=== PATIENT | male | born 1930 ===

== ENCOUNTER 2016-09-17 12:50 | Emergency (ER) | payer OTHER, MEDICARE ==
[~2016-09-17] VITALS: Ht 170.2 cm; Wt 65.8 kg
[~2016-09-17 12:50] MED LIST: CARDIZEM CD120 M2 PO; CARDIZEM CD180 M1 PO; CARDIZEM30 M1 PO; CLARITIN10 MG PO; COUMADIN 2.5 M2.5 MG PO; COZAAR 50MG TAB50 MG PO; CRESTOR 10MG10 MG PO; DILTIAZEM HCL30 M1 PO; DONEPEZIL HCL10 M1 PO; FERROUS SULFAT324 M1 PO; LEVOTHYROXINE0.1 M1 PO; METOPROLOL TART25 M1 PO; METOPROLOL TART50 M1 PO; MIRALAX119 GM PO; NEXIUM 40MG40 MG PO; NORVASC 5MG TAB5 MG PO; TAMSULOSIN HCL0.4 M1 PO; TRIAMCINOLONE AC
[2016-09-17 13:47] LABS: ABSOLUTE BASOPHIL COUNT 0 /CUMM (0.0-0.2); ABSOLUTE EOSINOPHIL COUNT 0.2 /CUMM (0.0-0.7); ABSOLUTE GRANULOCYTE CT 6.3 /CUMM (1.4-6.5); ABSOLUTE LYMPH COUNT 0.9 /CUMM (1.2-3.4); ABSOLUTE MONOCYTE COUNT 0.9 /CUMM (0.10-0.60); BASOPHIL % 0.4 % (0.0-2.0); EOSINOPHIL % 2.9 % (0-5); HEMATOCRIT 37.2 % (42-52); MEAN CORPUSCULAR HGB 30.9 PG (27.0-31.0); MEAN CORPUSCULAR HGB CONC 33.3 G/DL (33.0-37.0); MEAN CORPUSCULAR VOLUME 92.8 FL (80.0-94.0); MEAN PLATELET VOLUME 7.8 FL (7.4-10.4); PLATELET COUNT 198 /CUMM (130-400); RBC DISTRIBUTION WIDTH 14.6 % (11.5-14.5); RED BLOOD CELL CT 4.01 /CUMM (4.70-6.10); WHITE BLOOD CELL COUNT 8.5 /CUMM (4.8-10.8)
[2016-09-17 13:55] LABS: PT 19.2 SEC (9.4-12.5); PTT 36 SEC (25-37)
--- NOTE | 2016-09-17 14:16 | ED MVC/FALL/TRAUMA COMPLAINT ---
See Addendum History of Present Illness General Chief Complaint: Fall Stated Complaint: FALL RIGHT ARM PAIN Source: patient Exam Limitations: no limitations Allergies Coded Allergies: atorvastatin (UNKNOWN 03/08/16) cephalexin (RASH 03/08/16) ramipril (RASH 03/08/16) Reconcile Medications Diltiazem HCl (Cardizem) 30 MG TABLET 1 TAB PO Q8 HEART Donepezil HCl 10 MG TABLET 1 TAB PO DAILY MEMORY (Reported) Esomeprazole (Nexium) 40 MG CAPSULE.DR 1 CAP PO DAILY GI (Reported) Ferrous Sulfate 324 MG (65 MG IRON) TABLET.DR 1 TAB PO DAILY SUPPLEMENT ( Reported) Levothyroxine Sodium 0.1 MG TAB 1 TAB PO DAILY THYROID (Reported) Loratadine (Claritin) 10 MG TAB 1 TAB PO DAILY ALLERGIES/RESPIRATORY ( Reported) Metoprolol Tartrate 25 MG TABLET 3 TAB PO BID Rapid heart rate Polyethylene Glycol 3350 (Miralax) 119 GM POWDER 17 GM PO DAILY PRN CONSTIPATION Rosuvastatin Calcium (Crestor) 10 MG TABLET 1 TAB PO DAILY CHOLESTEROL ( Reported) Tamsulosin HCl 0.4 MG CAP.ER.24H 1 CAP PO DAILY BPH (Reported) Warfarin Sodium (Coumadin) 2.5 MG TABLET 1 TAB PO DAILY BLOOD THINNER ( Reported) Triage Note: C/O PAIN IN R UPPER ARM, S/P FALL. WAS GETTING WEIGHED BY HOME HEALTH AIDE. FELL BACKWARDS AGAINST A WALL. UNSURE OF SXS PRIOR. Triage Nurses Notes Reviewed? yes Onset: Abrupt Duration: constant Timing: single episode today Severity: mild Severity Numbers: 1 Injuries/Fall Location: upper extremity HPI: Patient is an 86-year-old male with a past medical history of Alzheimer's, COPD, atrial for ablation currently on warfarin who presents emergency room with a mechanical fall 7 hours prior to arrival he was in his normal state of health in which a home health aid had been attempting to weigh the patient on a scale which patient then stepped off the scale miss stepped and subsequently fell to the right side of his body and which he braced his fall in which she subsequently struck the RIGHT upper arm to corner of piece of furniture resulting in skin trauma. Patient with assistance was able to get up on his own accord and patient denies any preceding episode of lightheaded sensation dizziness denies any head strike denies any neck pain back pain abdominal pain lower extremity pain. Patient has been able to ambulate without any pain. Patient usually ambulate with a cane and/or walker. Tetanus is is up-to-date Due to the skin tear bleeding did occur which this was controlled prior to arrival in which the health aide did dress the wound (KEM BARKER) Vital Signs & Intake/Output Vital Signs & Intake/Output Vital Signs Date Time Temp Pulse Resp B/P Pulse O2 O2 Flow FiO2 Ox Delivery Rate 09/17 1552 97.9 89 20 139/80 99 Room Air 09/17 1319 97.1 68 18 128/73 93 Room Air Past History Travel History Traveled to [facility] past 21 day No Medical History Any Pertinent Medical History? 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 No (KEM BARKER) Review of Systems Review of Systems Constitutional: Reports: no symptoms. Eyes: Reports: no symptoms. Ears, Nose, Throat, Mouth: Reports: no symptoms. Respiratory: Reports: no symptoms. Cardiovascular: Reports: no symptoms. Gastrointestinal/Abdominal: Reports: no symptoms. Genitourinary: Reports: no symptoms. Musculoskeletal: Reports: see HPI. Skin: Reports: see HPI. Neurological/Psychological: Reports: see HPI. All Other Systems: Reviewed and Negative (KEM BARKER) Physical Exam Physical Exam General Appearance: well developed/nourished, no apparent distress, alert Comments: Well-developed well-nourished person in no acute distress HEENT: Normal EENT exam, extraocular motion intact, no nystagmus. Pupils equally round and reactive to light and accommodation. Nose is atraumatic. External auditory canal and Tympanic membranes clear. Pharynx normal. No swelling or edema. Neck: Supple, no lymphadenopathy, normal range of motion without pain or tenderness No central spinous tenderness Back: Nontender, no CVA tenderness. Full range of motion No central spinous tenderness Cardiovascular: Regular rate and rhythms no murmurs rubs or gallops, normal JVP Respiratory: Chest nontender. No respiratory distress.breath sounds clear to auscultation bilaterally Abdomen: Soft, nontender nondistended, no appreciable organomegaly. Normal bowel sounds. No ascites Extremity: No edema, no calf tenderness to palpation, normal and equal pulses. Bilateral upper extremity and lower extremity myotomes dermatomes DTRs intact 5 out of 5 resisted range of motion noted in all extremities Neuro: Alert oriented x3, motor sensory normal, cranial nerves II through XII grossly intact. Skin: No appreciable rash on exposed skin, skin is warm and dry. Psych: Mood and affect is normal, memory and judgment is normal. Diagram Body: 1) 3 skin V-SHAPED FLAP tears noted of superficial depth no active bleeding Approximately 2 cm x 2 cm each skin tear Core Measures ACS in differential dx? No Severe Sepsis Present: No Septic Shock Present: No (CORNELIO HO,KEM) Progress Differential Diagnosis: aoritic dissection, abd injury, C/T/L spine injury, ext injury, ICH, pelvis injury, pnemothorax, spinal cord injury (KEM BARKER) Plan of Care: Orders Procedure Date/time Status TROPONIN LEVEL 09/17 1325 Complete PARTIAL THROMBOPLASTIN TIME 09/17 1325 Complete PROTHROMBIN TIME 09/17 1325 Complete CBC WITHOUT DIFFERENTIAL 09/17 1325 Complete BASIC METABOLIC PANEL 09/17 1325 Complete EKG 09/17 1324 Active Laboratory Tests 09/17/16 1336: Anion Gap 10, Estimated GFR 52 L, BUN/Creatinine Ratio 17.7, Glucose 81, Calcium 9.0, Troponin I < 0.01, PT 19.2 H, INR 1.84 H, APTT 36, CBC w Diff NO MAN DIFF REQ, RBC 4.01 L, MCV 92.8, MCH 30.9, RDW 14.6 H, MPV 7.8, Gran % 75.0 , Lymphocytes % 11.1 L, Monocytes % 10.6 H, Eosinophils % 2.9, Basophils % 0.4 , Absolute Granulocytes 6.3, Absolute Lymphocytes 0.9 L, Absolute Monocytes 0.9 H, Absolute Eosinophils 0.2, Absolute Basophils 0, PUBS MCHC 33.3 Patient has unremarkable blood work patient has stable and known atrial fibrillation noted on EKG. Patient has normal steady gait. The wound sites were irrigated extensively with peroxide and water. Tetanus is up-to-date. No concerns of neurovascular compromise or tendon compromise. The skin tears were repaired and margins were repaired with benzoin and Steri- Strips. Margins were revised patient tolerated well Telfa pad and Kerlix were then applied. I discussed disposition plan with patient and family members who agree upon discharge patient looks well there is no concerns of head strike central spinous pain fracture Patient has no symptoms. Discussed and instructed patient on wound care Discussed patient with Dr. Lo who agrees with disposition and plan (KEM BARKER) Departure Departure Disposition: HOME OR SELF CARE Condition: Stable Clinical Impression Primary Impression: Skin tear of right upper arm without complication Secondary Impressions: Fall Referrals: SAMANTHA ANDRE,TERI Woodruff (PCP/Family) Additional Instructions: As discussed please change the bandages provided to YOU IN the emergency room once a day. If you note signs of infection redness, pain, swelling, discharge to the wound site return to the emergency room immediately. The Steri-Strips that have been applied TO YOU in the emergency room will follow-up in approximateLY 4 days. Keep the wound UNBANDAGED after 4 days. Follow-up with your primary care doctor on Wednesday. Departure Forms: Customer Survey General Discharge Information (KEM BARKER) PA/RV PARTS AND SERVICE DIRECTOR Co-Sign Statement Statement: ED Attending supervision documentation- [X] I saw and evaluated the patient. I have also reviewed all the pertinent lab results and diagnostic results. I agree with the findings and the plan of care as documented in the PA's/RV PARTS AND SERVICE DIRECTOR's documentation. [] I have reviewed the ED Record and agree with the PA's/RV PARTS AND SERVICE DIRECTOR's documentation. [] Additions or exceptions (if any) to the PAs/RV PARTS AND SERVICE DIRECTOR's note and plan are summarized below: [] (DEVYN ANDRE,ZOYA Ann) ED Attending Observation Initial Observation Note: I have seen and personally examined PAGE GARRIDO on 09/17/16 at 1648. I agree with the current emergency department documentation. The disposition (admission or discharge) is uncertain at this time, he needs a period of observation for the following reason(s): The ED Nurse caring for this patient has been personally informed as to what the patient is being observed for. (KEM BARKER)
[2016-09-17 15:52] VITALS: BP 139/80
== END 2016-09-17 16:07 ==
LOC: ERH 12:50
PROVIDERS: Emergency Medicine
DX: S41.111A Laceration without foreign body of right upper arm, initial encounter (principal); I48.91 Unspecified atrial fibrillation; Z79.01 Long term (current) use of anticoagulants; W18.09XA Striking against other object with subsequent fall, initial encounter
CPT/HCPCS: 93005; 93010

== ENCOUNTER 2016-10-16 08:56 | Inpatient (IN) | payer OTHER, MEDICARE ==
[~2016-10-16] VITALS: Ht 170.2 cm; Wt 65.8 kg
--- NOTE | 2016-10-16 09:03 | NUR ---
86 YO MALE BIBA FROM HOME. PTS AIDE FOUND PT ON THE FLOOR THIS AM. PER AIDE, PT WAS C/O L SIDED HIP PAIN. PT DENIES PAIN TO AREA AT THIS TIME, ABLE TO MOVE BOTH LEGS WITHOUT DIFFICULTIES OR PAIN. PT STATES "IM JUST ALL BRUISED UP" PT HX OF DEMENTIA. ALERT AND ORIENTED AT THIS TIME.
--- NOTE | 2016-10-16 09:06 | NUR ---
PTS R EYE NOTED TO BE RED AROUND LID, PER AIDE THAT IS NORMAL FOR THE PT. PT DENIES PAIN TO THE EYE
--- NOTE | 2016-10-16 09:10 | NUR ---
PA STUDENT AT BEDSIDE FOR EVAL
--- NOTE | 2016-10-16 09:29 | ED MVC/FALL/TRAUMA COMPLAINT ---
History of Present Illness General Chief Complaint: Fall Stated Complaint: FALL Source: patient, family Exam Limitations: dementia Vital Signs & Intake/Output Vital Signs & Intake/Output Vital Signs Date Time Temp Pulse Resp B/P Pulse O2 O2 Flow FiO2 Ox Delivery Rate 10/16 1229 97.3 86 18 147/70 96 Room Air 10/16 1031 97.1 81 18 151/76 98 Room Air 10/16 0903 97 Room Air 10/16 0900 98.6 96 18 147/87 97 Room Air Allergies Coded Allergies: atorvastatin (UNKNOWN 03/08/16) cephalexin (RASH 03/08/16) ramipril (RASH 03/08/16) Triage Note: 86 YO MALE BIBA FROM HOME. PTS AIDE FOUND PT ON THE FLOOR THIS AM. PER AIDE, PT WAS C/O L SIDED HIP PAIN. PT DENIES PAIN TO AREA AT THIS TIME, ABLE TO MOVE BOTH LEGS WITHOUT DIFFICULTIES OR PAIN. PT STATES "IM JUST ALL BRUISED UP" PT HX OF DEMENTIA. ALERT AND ORIENTED AT THIS TIME. Triage Nurses Notes Reviewed? yes Onset: Abrupt Timing: recent history Severity: moderate, severe Injuries/Fall Location: head, pelvis Method of Injury: fall Loss of Consciousness: unsure No Modifying Factors: none HPI: 86-year-old male with a history of dementia was found on the floor by the nurses a. Patient fell. Patient cannot recall how he fell. Patient cannot recall if he had preceding symptoms. Patient admits to some left hip pain. Family reports patient has been falling repeatedly at home and is not safe at home. No complaints of fever chills vomiting or chest pain. (ANGELICA HO,LOTUS) Reconcile Medications Diltiazem HCl (Diltiazem 24HR ER) 120 MG CAP.ER.24H 1 CAP PO DAILY AFIB ( Reported) Diltiazem HCl (Cardizem) 30 MG TABLET 1 TAB PO Q8 HEART Donepezil HCl 10 MG TABLET 1 TAB PO DAILY MEMORY (Reported) Esomeprazole (Nexium) 40 MG CAPSULE.DR 1 CAP PO DAILY GI (Reported) Ferrous Sulfate 324 MG (65 MG IRON) TABLET.DR 1 TAB PO DAILY SUPPLEMENT ( Reported) Levothyroxine Sodium 0.1 MG TAB 1 TAB PO DAILY THYROID (Reported) Levothyroxine Sodium 150 MCG TABLET 1 TAB PO DAILY HYPOTHYROID (Reported) Loratadine (Claritin) 10 MG TAB 1 TAB PO DAILY ALLERGIES/RESPIRATORY ( Reported) Metoprolol Tartrate 25 MG TABLET 3 TAB PO BID Rapid heart rate Polyethylene Glycol 3350 (Miralax) 119 GM POWDER 17 GM PO DAILY PRN CONSTIPATION Rosuvastatin Calcium (Crestor) 10 MG TABLET 1 TAB PO DAILY CHOLESTEROL ( Reported) Tamsulosin HCl 0.4 MG CAP.ER.24H 1 CAP PO DAILY BPH (Reported) Trazodone HCl 50 MG TABLET 1 TAB PO QPM INSOMNIA (Reported) Warfarin Sodium (Coumadin) 2.5 MG TABLET 1 TAB PO DAILY BLOOD THINNER ( Reported) (ZOYA KOTHARI DO) Past History Travel History Traveled to [place] past 21 day No Medical History Any Pertinent Medical History? 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 No (LOTUS OCONNOR) Review of Systems Review of Systems Constitutional: Reports: see HPI. Eyes: Reports: no symptoms. Ears, Nose, Throat, Mouth: Reports: no symptoms. Respiratory: Reports: no symptoms. Cardiovascular: Reports: no symptoms. Gastrointestinal/Abdominal: Reports: no symptoms. Genitourinary: Reports: no symptoms. Musculoskeletal: Reports: no symptoms. Skin: Reports: no symptoms. Neurological/Psychological: Reports: see HPI. All Other Systems: Reviewed and Negative (LOTUS OCONNOR) Physical Exam Physical Exam General Appearance: well developed/nourished, no apparent distress, alert Head: atraumatic Eyes: Bilateral: normal appearance, EOMI. Ears, Nose, Throat, Mouth: hearing grossly normal, moist mucous membrane Neck: normal inspection Respiratory: normal breath sounds, no respiratory distress Cardiovascular: irregularly irregular Gastrointestinal: soft Back: normal inspection Extremities: normal range of motion Neurologic/Psych: awake, alert Skin: intact, normal color Core Measures ACS in differential dx? No Severe Sepsis Present: No Septic Shock Present: No (ANGELICA HO,LOTUS) Progress Differential Diagnosis: abd injury, C/T/L spine injury, ext injury, ICH, pelvis injury, pnemothorax, spinal cord injury, UTI, syncope, cardiac arrhythmia Plan of Care: Orders Procedure Date/time Status Regular Diet 10/16 D Active PT Evaluate & Treat 10/16 1401 Active Pathway - chart 10/16 1401 Active House Staff 10/16 1401 Active Patient Data 10/16 1401 Active Code Status 10/16 1401 Active Intake & Output 10/16 1354 Active Admit to inpatient 10/16 1224 Active Vital Signs 10/16 1224 Active Code Status 10/16 1224 Complete Patient Data 10/16 1203 Active Telemetry/Oral Pathologist 10/16 0928 Active URINALYSIS 10/16 09 Complete TROPONIN LEVEL 10/16 927 Complete PROTHROMBIN TIME 10/16 927 Complete COMPREHENSIVE METABOLIC PANEL 10/16 927 Complete CREATINE PHOSPHOKINASE 10/16 927 Complete CBC WITHOUT DIFFERENTIAL 10/16 927 Complete EKG 10/16 927 Active VTE Mechanical Prophylaxis 10/16 UNK Active Laboratory Tests 10/16/16 1104: Urine Color YEL, Urine Clarity HAZY H, Urine pH 6.0, Ur Specific Purchase 1.025, Urine Protein TRACE H, Urine Ketones NEG, Urine Nitrite POS H, Urine Bilirubin NEG, Urine Urobilinogen 1.0, Ur Leukocyte Esterase MOD H, Ur Microscopic SEDIMENT EXAMINED, Urine RBC RARE, Urine WBC 50-75 H, Urine Mucus RARE, Urine Hemoglobin NEG, Urine Glucose NEG 10/16/16 0939: Anion Gap 8, Estimated GFR 44 L, BUN/Creatinine Ratio 20.0, Glucose 90, Calcium 9.1, Total Bilirubin 0.8, AST 19, ALT 23, Alkaline Phosphatase 123, Creatine Kinase 70, Troponin I < 0.01, Total Protein 7.0, Albumin 3.6, Globulin 3.4, Albumin/Globulin Ratio 1.1, PT 34.8 H, INR 3.35 H, CBC w Diff NO MAN DIFF REQ, RBC 3.99 L, MCV 92.3, MCH 30.7, RDW 14.1, MPV 8.2, Gran % 80.2 H, Lymphocytes % 8.2 L, Monocytes % 9.4 H, Eosinophils % 1.9, Basophils % 0.3, Absolute Granulocytes 5.1, Absolute Lymphocytes 0.5 L, Absolute Monocytes 0.6, Absolute Eosinophils 0.1, Absolute Basophils 0, PUBS MCHC 33.3 Diagnostic Imaging: Viewed by Me: Radiology Read, CT Scan. Discussed w/RAD: Radiology Read, CT Scan. Radiology Impression: EXAM TYPE: CAT - CT CERV SPINE WO IV CONTRAST; CT HEAD WO IV CONTRAST EXAMINATION: CT HEAD AND CERVICAL SPINE. CLINICAL INFORMATION: Fall. Dementia. Pain. COMPARISON: CT head 05/11/2016. TECHNIQUE: Blood Collector images were obtained. A CT acquisition of the head and cervical spine was performed without intravenous administration of contrast. Data was reformatted into multiplanar images at the acquisition workstation. DLP: 972.40 mGy-cm. FINDINGS: Head: There is no acute intracranial hemorrhage or abnormal extra-axial collection. No intracranial mass effect or midline shift. Lateral and third ventricles are normal. There is no hydrocephalus. There are a few scattered foci of nonspecific hypoattenuation within the periventricular white matter and basal ganglia that are most consistent with a chronic manifestation of small vessel ischemia. Long- white matter differentiation is grossly preserved and there is no evidence of acute territorial infarct. The calvarium and skull base are intact. Mastoid air cells and middle ear cavities are well aerated. Visualized paranasal sinuses are well aerated. Globes and orbits are symmetric. Cervical spine: There is 3 mm anterolisthesis of C7 on T1 related to advanced facet degenerative changes at this level. Slight anterolisthesis of C2 on C3. Vertebral alignment is otherwise maintained in the sagittal dimension. There is no evidence of acute fracture. No abnormal prevertebral soft tissue swelling. There is a prominent bridging disc osteophyte complex that fuses the C5 and C6 vertebral segments. There is loss of intervertebral disc height with associated sclerotic degenerative endplate changes at multiple levels within the cervical spine related to degenerative spondylosis. There appears be mild canal stenosis at the levels of C3-C4, C4-C5, and C6-C7. Otherwise there is grossly no evidence of canal compromise. There are varying degrees of neuroforaminal encroachment related to uncovertebral joint hypertrophy and facet osteophyte spurring. Soft tissues of the neck are grossly unremarkable. Specifically there is no worrisome mass. Calcified atheromatous plaque involves both carotid bifurcations. Lung apices are clear. IMPRESSION: Head: There is no evidence of acute territorial infarct or hemorrhage. Numerous chronic small vessel ischemic changes are visualized within the periventricular white matter and basal ganglia. Cervical spine: There is multilevel degenerative spondylosis of the cervical spine. No evidence of acute fracture. There is 3 mm anterolisthesis of C7 on T1 related to advanced facet degenerative changes at this level. There is at least mild canal stenosis at multiple levels and varying degrees of neuroforaminal encroachment related to multifactorial degenerative changes. DICTATED BY: JOCY NORIEGA MD DATE/TIME DICTATED:10/16/161019 BRANNER MACHINE TENDER:FRANCINE DATE/TIME TRANSCRIBED:10/16/161019, SERVICE DATE : 10/16/16 EXAM TYPE: RAD - XRY-HIP 2-3 VIEWS, RIGHT EXAMINATION: XR HIP, RIGHT CLINICAL INFORMATION: Fall. Pain. COMPARISON: No relevant prior imaging is available. TECHNIQUE: An AP view of the pelvis was obtained and 2 additional projections of the right hip were obtained. FINDINGS: There is mild degenerative arthrosis of the right hip with a small osteophyte collar surrounding the femoral head. There is no acute fracture. The joint space is maintained. Soft tissues are unremarkable. Grossly there is no large joint effusion. The AP view of the pelvis reveals no abnormal finding. The pelvic ring is intact. Scattered atheromatous calcifications are visualized within both iliac and femoral vessels. Visualized bowel gas pattern is unremarkable. Degenerative spondylosis of the lumbar lower spine is noted with narrowing of the intervertebral disc space and sclerotic degenerative endplate changes at L4-L5. IMPRESSION: No acute fracture. Mild degenerative changes of the right hip. DICTATED BY: JOCY NORIEGA MD DATE/TIME DICTATED:10/16/161002 BRANNER MACHINE TENDER:FRANCINE DATE/ TIME TRANSCRIBED:10/16/161002 CONFIDENTIAL, DO NOT COPY WITHOUT APPROPRIATE AUTHORIZATION. Initial ED EKG: rate (82), AFIB, venticular trigeminy (LOTUS OCONNOR) Departure Departure Disposition: STILL A PATIENT Condition: Stable Clinical Impression Primary Impression: Gait instability Secondary Impressions: UTI (urinary tract infection) Referrals: SAMANTHA ANDRE,TERI Woodruff (PCP/Family) Departure Forms: Customer Survey General Discharge Information Admission Note Spoke With: SAL OJEDA MD Documentation of Exam: Documentation of any treatments & extenuating circumstances including Concerns Regarding Discharge (functional status, medication knowledge or non-compliance, living conditions, etc.) that warrant an admission rather than observation: Patient will require IV antibiotics. Physical therapy consultation. Patient is unable to ambulate here in the emergency room. Fall risk at home. Patient would do poorly as an outpatient. (LOTUS OCONNOR) PA/REMELT FURNACE EXPEDITER Co-Sign Statement Statement: ED Attending supervision documentation- [X] I saw and evaluated the patient. I have also reviewed all the pertinent lab results and diagnostic results. I agree with the findings and the plan of care as documented in the PA's/REMELT FURNACE EXPEDITER's documentation. [] I have reviewed the ED Record and agree with the PA's/REMELT FURNACE EXPEDITER's documentation. [] Additions or exceptions (if any) to the PAs/REMELT FURNACE EXPEDITER's note and plan are summarized below: [] (ZOYA KOTHARI DO
--- NOTE | 2016-10-16 09:39 | NUR ---
EKG COMPLETE AND SHOWN TO DR KOTHARI
--- NOTE | 2016-10-16 09:42 | NUR ---
BLOOD DRAWN AND SENT TO LAB. LAV,BLUE,SST,PINK, URBAN
--- NOTE | 2016-10-16 09:46 | NUR ---
PT TO CT SCAN VIA STRETCHER AT THIS TIME
[2016-10-16 09:48] LABS: ABSOLUTE BASOPHIL COUNT 0 /CUMM (0.0-0.2); ABSOLUTE EOSINOPHIL COUNT 0.1 /CUMM (0.0-0.7); ABSOLUTE GRANULOCYTE CT 5.1 /CUMM (1.4-6.5); ABSOLUTE LYMPH COUNT 0.5 /CUMM (1.2-3.4); ABSOLUTE MONOCYTE COUNT 0.6 /CUMM (0.10-0.60); BASOPHIL % 0.3 % (0.0-2.0); EOSINOPHIL % 1.9 % (0-5); GRANULOCYTE % 80.2 % (42.2-75.2); HEMATOCRIT 36.8 % (42-52); MEAN CORPUSCULAR HGB 30.7 PG (27.0-31.0); MEAN CORPUSCULAR HGB CONC 33.3 G/DL (33.0-37.0); MEAN CORPUSCULAR VOLUME 92.3 FL (80.0-94.0); MEAN PLATELET VOLUME 8.2 FL (7.4-10.4); PLATELET COUNT 184 /CUMM (130-400); RBC DISTRIBUTION WIDTH 14.1 % (11.5-14.5); RED BLOOD CELL CT 3.99 /CUMM (4.70-6.10); WHITE BLOOD CELL COUNT 6.4 /CUMM (4.8-10.8)
[2016-10-16 10:05] LABS: PT 34.8 SEC (9.4-12.5)
--- NOTE | 2016-10-16 10:10 | RADIOLOGY REPORT ---
EXAMINATION: XR HIP, RIGHT CLINICAL INFORMATION: Fall. Pain. COMPARISON: No relevant prior imaging is available. TECHNIQUE: An AP view of the pelvis was obtained and 2 additional projections of the right hip were obtained. FINDINGS: There is mild degenerative arthrosis of the right hip with a small osteophyte collar surrounding the femoral head. There is no acute fracture. The joint space is maintained. Soft tissues are unremarkable. Grossly there is no large joint effusion. The AP view of the pelvis reveals no abnormal finding. The pelvic ring is intact. Scattered atheromatous calcifications are visualized within both iliac and femoral vessels. Visualized bowel gas pattern is unremarkable. Degenerative spondylosis of the lumbar lower spine is noted with narrowing of the intervertebral disc space and sclerotic degenerative endplate changes at L4-L5. IMPRESSION: No acute fracture. Mild degenerative changes of the right hip.
--- NOTE | 2016-10-16 10:33 | CT SCAN REPORT ---
EXAMINATION: CT HEAD AND CERVICAL SPINE. CLINICAL INFORMATION: Fall. Dementia. Pain. COMPARISON: CT head 05/11/2016. TECHNIQUE: Pharmacy Retail Support Specialist images were obtained. A CT acquisition of the head and cervical spine was performed without intravenous administration of contrast. Data was reformatted into multiplanar images at the acquisition workstation. DLP: 972.40 mGy-cm. FINDINGS: Head: There is no acute intracranial hemorrhage or abnormal extra-axial collection. No intracranial mass effect or midline shift. Lateral and third ventricles are normal. There is no hydrocephalus. There are a few scattered foci of nonspecific hypoattenuation within the periventricular white matter and basal ganglia that are most consistent with a chronic manifestation of small vessel ischemia. Long-white matter differentiation is grossly preserved and there is no evidence of acute territorial infarct. The calvarium and skull base are intact. Mastoid air cells and middle ear cavities are well aerated. Visualized paranasal sinuses are well aerated. Globes and orbits are symmetric. Cervical spine: There is 3 mm anterolisthesis of C7 on T1 related to advanced facet degenerative changes at this level. Slight anterolisthesis of C2 on C3. Vertebral alignment is otherwise maintained in the sagittal dimension. There is no evidence of acute fracture. No abnormal prevertebral soft tissue swelling. There is a prominent bridging disc osteophyte complex that fuses the C5 and C6 vertebral segments. There is loss of intervertebral disc height with associated sclerotic degenerative endplate changes at multiple levels within the cervical spine related to degenerative spondylosis. There appears be mild canal stenosis at the levels of C3-C4, C4-C5, and C6-C7. Otherwise there is grossly no evidence of canal compromise. There are varying degrees of neuroforaminal encroachment related to uncovertebral joint hypertrophy and facet osteophyte spurring. Soft tissues of the neck are grossly unremarkable. Specifically there is no worrisome mass. Calcified atheromatous plaque involves both carotid bifurcations. Lung apices are clear. IMPRESSION: Head: There is no evidence of acute territorial infarct or hemorrhage. Numerous chronic small vessel ischemic changes are visualized within the periventricular white matter and basal ganglia. Cervical spine: There is multilevel degenerative spondylosis of the cervical spine. No evidence of acute fracture. There is 3 mm anterolisthesis of C7 on T1 related to advanced facet degenerative changes at this level. There is at least mild canal stenosis at multiple levels and varying degrees of neuroforaminal encroachment related to multifactorial degenerative changes.
--- NOTE | 2016-10-16 10:40 | NUR ---
PT REPOSOTIONED FOR COMFORT AT THIS TIME. PT AWARE OF NEED FOR URINE SAMPLE AND WILL LET ME KNOW WHEN HE HAS TO GO
--- NOTE | 2016-10-16 10:59 | NUR ---
ATTEMPTED TO AMBULATE PT, PT WASNT ABLE TO MOVE HIMSELF TO THE SIDE OF THE BED WITHOUT ASSISTANCE, PT APPEARS EXTREMILY WEAK. PA AWARE
--- NOTE | 2016-10-16 11:09 | NUR ---
PT ASSISTED TO USE URINAL AT [facility] TIME, OUTPUT 200CC CLEAR URINE. SPECIMEN SENT TO LAB.
--- NOTE | 2016-10-16 12:31 | NUR ---
PT AWOKEN FOR VITAL SIGNS, AWARE HE WILL BE ADMITTESD OFFERS NO COMPLAINTS AT THIS TIME WILL CTM
--- NOTE | 2016-10-16 13:16 | NUR ---
PT ADMITTED TO ROOM 204-2
--- NOTE | 2016-10-16 13:29 | NUR ---
REPORT GIVEN TO PRAKASH. [facility]RI[employer] CALLED FOR TRANSPORT
[2016-10-16 14:00] VITALS: BP 140/80
--- NOTE | 2016-10-16 14:00 | NUR ---
NSG NOTE: PATIENT ARRIVED TO FLOOR FROM ED AT APPROX 1350 VIA STRETCHER ACCOMAPNIED BY DISTRIBTION; STACIA RN ACCOMPANIED PATIENT AND OBTAINED VITALS; PATIENT A/OX2-3, 94% RA, BP 140/80, HR 72, NO PAIN. PATIENT ORIENTED TO ROOM + CALL SHEPARD IN REACH; PATIENTS DAUGHTER MARITZA AT THE BEDSIDE; BED ALARM IN PLACE; ALPS PLACED; ORIENTED TO ROOM, CALL SHEPARD IN REACH, WILL CONT TO MONITR
[2016-10-16] MEDS ORDERED: TRAZODONE HCL50 M1 PO (14:02)
[2016-10-16] MEDS ORDERED: LEVOTHYROXINE150 MCG PO (14:06)
[2016-10-16] MEDS ORDERED: DILTIAZEM 24HR120 MG PO (14:07)
[2016-10-16] MEDS ORDERED: METOPROLOL TART25 M1 PO (14:22)
--- NOTE | 2016-10-16 15:30 | NUR ---
NSG NOTE: THIS RN NOTIFIED BY MD THAT THERE WERE NOTED EKG CHANGES AND THAT PATIENT IS GOING TO BE TRANSFERRD TO TELE; WILL CONT TO MONITOR
--- NOTE | 2016-10-16 15:40 | History & Physical ---
KG BATES 10/16/16 1540: General Information and HPI Source of Information: family Exam Limitations: poor historian History of Present Illness: He is 86-year-old man with past medical history of coronary artery disease status post CABG in 2002, chronic A. fib on Coumadin, left carotid endarterectomy, Alzheimer's disease, TIA, hypertension, COPD, hypothyroidism and chronic renal insufficiency BIBA from home as patient aide found him on the floor this morning. Patient lives alone. He hasn't health aide who comes in his home in the morning from 7:30am-1pm and then 5pm-11pm. Patient cannot recall the event. Only thing he remembers that he got up at night to go to bathroom and fell down. He does not remember if he had any preceding symptoms. Patient has history of multiple falls in past. Daughter wants placement in [facility]. Patient is denying any fever, chills, chest pain or discomfort, breathing difficulty, palpitations, abdominal pain. According to daughter patient had diarrhea last week but it has resolved. He is going to bathroom more frequently but patient denies any pain or burning upon micturition. Allergies/Medications Allergies: Coded Allergies: atorvastatin (UNKNOWN 03/08/16) cephalexin (RASH 03/08/16) ramipril (RASH 03/08/16) Home Med list Diltiazem HCl (Diltiazem 24HR ER) 120 MG CAP.ER.24H 1 CAP PO DAILY AFIB ( Reported) Donepezil HCl 10 MG TABLET 1 TAB PO DAILY MEMORY (Reported) Esomeprazole (Nexium) 40 MG CAPSULE.DR 1 CAP PO DAILY GI (Reported) Ferrous Sulfate 324 MG (65 MG IRON) TABLET.DR 1 TAB PO DAILY SUPPLEMENT ( Reported) Levothyroxine Sodium 150 MCG TABLET 1 TAB PO DAILY HYPOTHYROID (Reported) Metoprolol Tartrate 25 MG TABLET 1 TAB PO BID Rapid heart rate Polyethylene Glycol 3350 (Miralax) 119 GM POWDER 17 GM PO DAILY PRN CONSTIPATION Rosuvastatin Calcium (Crestor) 10 MG TABLET 1 TAB PO DAILY CHOLESTEROL ( Reported) Tamsulosin HCl 0.4 MG CAP.ER.24H 1 CAP PO DAILY BPH (Reported) Trazodone HCl 50 MG TABLET 1 TAB PO QPM INSOMNIA (Reported) Warfarin Sodium (Coumadin) 2.5 MG TABLET 1 TAB PO DAILY BLOOD THINNER ( Reported) Past History Travel History Traveled to [place] past 21 day No Medical History Neurological: Alzheimer's disease, dementia, TIA EENT: NONE Cardiovascular: AFIB, CAD, hypertension, hyperlipidemia Respiratory: COPD Gastrointestinal: GERD Hepatic: NONE Renal: NONE Musculoskeletal: NONE Psychiatric: NONE Endocrine: NONE Blood Disorders: anemia Cancer(s): NONE 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 self Services at Home: None Primary Language: Filipino Living Will? no Power of Rn Integrated/HCP? yes Functional Ability ADLs Independent: dressing, eating, toileting, bathing. Ambulation: independent IADLs Independent: shopping, housework, finances, food prep, telephone, transportation , medication admin. Review of Systems Review of Systems Constitutional: Reports: see HPI. Exam & Diagnostic Data Last 24 Hrs of Vital Signs/I&O Vital Signs Date Time Temp Pulse Resp B/P Pulse O2 O2 Flow FiO2 Ox Delivery Rate 10/16 1600 97.9 83 11 140/70 95 Room Air / 1400 94 Room Air / 1400 72 18 140/80 94 Room Air / 1229 97.3 86 18 147/70 96 Room Air / 1031 97.1 81 18 151/76 98 Room Air / 0903 97 Room Air / 0900 98.6 96 18 147/87 97 Room Air Intake & Output / 1600 02/03 0800 02/ 0000 Intake Total Output Total Balance Patient 145 lb Weight Physical Exam General Appearance Alert, Cooperative, No Acute Distress, ORIENTED X 1 Neck Supple Cardiovascular IRREGULARLY IRREGULAR Lungs Clear to Auscultation Abdomen Normal Bowel Sounds, Soft, No Tenderness Neurological Strength at 5/5 X4 Ext, Sensation Intact, Cranial Nerves 3-12 NL Extremities RIGHT LOWER EXTREMITY IS MILDLY SWOLLEN COMPARED TO LEFT. no tenderness or erythema. Last 24 Hrs of Labs/Julian: Laboratory Tests 10/16/16 1104: Urine Color YEL, Urine Clarity HAZY H, Urine pH 6.0, Ur Specific [place] 1.025, Urine Protein TRACE H, Urine Ketones NEG, Urine Nitrite POS H, Urine Bilirubin NEG, Urine Urobilinogen 1.0, Ur Leukocyte Esterase MOD H, Ur Microscopic SEDIMENT EXAMINED, Urine RBC RARE, Urine WBC 50-75 H, Urine Mucus RARE, Urine Hemoglobin NEG, Urine Glucose NEG 10/16/16 0939: Anion Gap 8, Estimated GFR 44 L, BUN/Creatinine Ratio 20.0, Glucose 90, Calcium 9.1, Total Bilirubin 0.8, AST 19, ALT 23, Alkaline Phosphatase 123, Creatine Kinase 70, Troponin I < 0.01, Total Protein 7.0, Albumin 3.6, Globulin 3.4, Albumin/Globulin Ratio 1.1, PT 34.8 H, INR 3.35 H, CBC w Diff NO MAN DIFF REQ, RBC 3.99 L, MCV 92.3, MCH 30.7, RDW 14.1, MPV 8.2, Gran % 80.2 H, Lymphocytes % 8.2 L, Monocytes % 9.4 H, Eosinophils % 1.9, Basophils % 0.3, Absolute Granulocytes 5.1, Absolute Lymphocytes 0.5 L, Absolute Monocytes 0.6, Absolute Eosinophils 0.1, Absolute Basophils 0, PUBS MCHC 33.3 Microbiology 10/16 1555 BLOOD: Blood Culture - COLB 10/16 1555 BLOOD: Blood Culture - COLB 10/16 1554 URINE ROUT: Urine Culture - COLB Diagnostic Data EKG Results Atrial fibrillation Heartrate 90 Ventricular trigeminy Other Results Head CT: No acute intracranial pathology Hip x-ray and cervical spine CT did not show any acute fractures Assessment/Plan Assessment: He is 86-year-old man with past medical history of coronary artery disease status post CABG in 2002, chronic A. fib on Coumadin, left carotid endarterectomy, Alzheimer's disease, TIA, hypertension, COPD, hypothyroidism BIBA from home as patient aide found him on the floor this morning. Patient does not recall the whole event. On admission there were EKG changes, ventricular trigeminy. Patient is not complaining of any cardiac symptoms. There is a possibility that patient might have a syncopal episode because of questionable cardiac arrhythmias. Problem list 1. Fall most likely syncopal episode ? Cardiac arrhythmia. Patient does not recall the whole event because of dementia. Positive EKG changes. On his last admission in April he was having some tachybradycardia syndrome and consideration for pacemaker was going on as outpatient. Patient did not follow- up with mothers helper. 2. Urinary tract infection 3. Supratherapeutic INR 4. Physical deconditioning and weakness. History of recurrent falls in past. 5. Chronic renal insufficiency. Creatinine closer to baseline We will admit patient to telemetry floor. Monitor vitals closely. Cardiac monitoring. Watch for any abnormal rhythms. Serial EKGs and troponins. Cardio consult. Echocardiogram. Oral ciprofloxacin for UTI. Follow urine culture and blood cultures. For supratherapeutic INR. Holding Coumadin for now. Will check INR again in morning. Physical therapy evaluation and treatment. He is on Coumadin and INR is supratherapeutic so holding for now. DNR/DNI. Regular diet. Mild pain pathway. PODani is Daughter Tawny Oates [phone] As Ranked By This Provider Problem List: 1. Fall 2. Acute electrocardiogram changes Core Measures/Miscellaneous Acute Coronary Syndrome ACS Diagnosis: No Cerebrovascular Accident CVA/TIA Diagnosis: No Congestive Heart Failure CHF Diagnosis: No Venous Thromboembolism VTE Risk Factors: Acute medical illness, Age > 40 VTE Prophylaxis Ordered Inpt[facility] prophylaxis d/t: No contraindications No VTE Pharm Prophylaxis d/t: No contraindications VTE Diagnosis: No VTE Type: NONE VTE Confirmed by (Test): NONE Severe Sepsis Severe Sepsis Present: No Septic Shock Septic Shock Present: No Miscellaneous Documentation Attending Case Discussed With: Dr. Amaral Primary Care Physician: TERI SINGH MD Patient sees these Specialists Dr. Devries Level of Patient Care: Telemetry Consults Needed: Consulting Specialty: Cardiology ANA AMARAL MD 10/16/16 4358: Attending Review Statement Attending Statement Attending MD Statement: examined this patient, discuss w/resident/PA/TRANSPORT SPECIALIST, agreed w/resident/PA/TRANSPORT SPECIALIST, reviewed EMR data (avail), reviewed images, amended to note Attending Assessment/Plan: The patient is an 86 yo male with h/o dementia, COPD, HTN, CKD, anemia, HL, carotid disease (left CEA in past/TIA), CAD (s/p PTCA and CABG), who presented in the [place] ED today after being found on floor (unwitnessed). Concern if this represented a mechanical fall or syncope. The patient does have a prior h/o bradycardia. The patient is a poor historian. He denies any chest pain, dyspnea, palpitations, fever, chills, dysuria, back pain, etc. He was noted to have pyuria and leukocyte esterase positive on U/A. EKG was abnormal showing atrial fibrillation with rate 80-120 and frequent PVCs. His appetite was noted to be poor over last week. Physical Exam; VS: T 97.3, P 72, R 18, BP 140/80, PO 94% HEENT: eyes- PERRLA, EOMI [place]- dry mucosa Neck: no JVD or bruits Chest: mild diminished breath sounds, clear Cor: irreg irreg, nl S1, S2 w/09/18 sys murm Abd: BS+, soft, NT Ext; no edema Neuro: alert, oriented to person, ? time/place, non-focal exam Labs/Tests- as above Impression/Plan: #S/P Unwitnessed Fall- at home. Possible syncope in patient with h/o known episodes of bradycardia. Patient unable to give clear history due to dementia. Plan: Admit to telemetry service- monitor HR for tachy/smooth arrythmias. PT/OT. #Pyuria- w/o fever or dysuria. Has h/o UTI in past (E coli). Plan: Will culture urine. Empiric po Cipro (he has allergy to cephalosporin and renal insufficiency). Await final culture results. #CAD/afib- has h/o CAD, however no ischemic symptoms or EKG changes. Frequent PVCs on EKG. Plan: Will check serial troponin I's. On Dilt/Metoprolol. Cardiology consult - Dr. Devries. Continue Coumadin. #Dementia- family concerned as he lives alone. Plan: Will assess. May need placement in SNF when stable medically. #Hypothyroid- on Levothyroxine. Plan: Continue Levothyroxine. Check TSH/Free T4. #HL- on Rosuvastatin. Plan: Continue Rosuvasatin. #BPH- on Tamsulosin. Plan: Continue Tamsulosin. Check orthostatic VS.
[2016-10-16 16:00] VITALS: BP 140/70
--- NOTE | 2016-10-16 16:58 | Cons- Cardiology ---
General Information and HPI Consulting Request Date of Consult: 10/16/16 Requested By: SAL OJEDA MD Reason for Consult: Syncopal episode versus mechanical fall. Source of Information: patient, old records Exam Limitations: dementia History of Present Illness: Mr. Kerri Lopez is an 86-year-old male with a history of dementia, former heavy tobacco use ([id number]), COPD, hypertension, chronic kidney disease, chronic anemia, dyslipidemia, carotid artery disease (status post left CEA), previous TIA, coronary artery disease (status post angioplasty LAD 2001; angioplasty LCx 10/26/2001; CABG 2 MACHADO to LAD and SVG to LCx 12/21/2001) , atrial fibrillation on warfarin anticoagulation, and frequent unwitnessed falls versus syncopal episodes who presented via ambulance from his home where he was found by his home health aide following an unwitnessed fall versus syncopal episode, during which he sustained contusions to his elbows. He admitted to having diarrhea last week and to having a generally poor appetite. He has no recollection of the events surrounding his winding up on the floor. He does state that his elbows are uncomfortable from where they struck the floor. He denies any prodromal symptoms. He also denies any urinary or fecal incontinence. He also states that when he "came to" he was aware of his surroundings and had no symptoms. Of note is the fact that he was scheduled to see us in outpatient follow-up, but never showed up for this. Allergies/Medications Allergies: Coded Allergies: atorvastatin (UNKNOWN 03/08/16) cephalexin (RASH 03/08/16) ramipril (RASH 03/08/16) Home Med List: Diltiazem HCl (Diltiazem 24HR ER) 120 MG CAP.ER.24H 1 CAP PO DAILY AFIB ( Reported) Donepezil HCl 10 MG TABLET 1 TAB PO DAILY MEMORY (Reported) Esomeprazole (Nexium) 40 MG CAPSULE.DR 1 CAP PO DAILY GI (Reported) Ferrous Sulfate 324 MG (65 MG IRON) TABLET.DR 1 TAB PO DAILY SUPPLEMENT ( Reported) Levothyroxine Sodium 150 MCG TABLET 1 TAB PO DAILY HYPOTHYROID (Reported) Metoprolol Tartrate 25 MG TABLET 1 TAB PO BID Rapid heart rate Polyethylene Glycol 3350 (Miralax) 119 GM POWDER 17 GM PO DAILY PRN CONSTIPATION Rosuvastatin Calcium (Crestor) 10 MG TABLET 1 TAB PO DAILY CHOLESTEROL ( Reported) Tamsulosin HCl 0.4 MG CAP.ER.24H 1 CAP PO DAILY BPH (Reported) Trazodone HCl 50 MG TABLET 1 TAB PO QPM INSOMNIA (Reported) Warfarin Sodium (Coumadin) 2.5 MG TABLET 1 TAB PO DAILY BLOOD THINNER ( Reported) Review of Systems Review of Systems: Unobtainable, as patient has dementia. 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 self Services at Home: None Primary Language: Vietnamese Living Will? no Power of Skip Operator/HCP? yes Functional Ability ADLs Independent: dressing, eating, toileting, bathing. Ambulation: independent IADLs Independent: shopping, housework, finances, food prep, telephone, transportation , medication admin. Exam & Diagnostic Data Vital Signs and I&O Vital Signs Date Time Temp Pulse Resp B/P Pulse O2 O2 Flow FiO2 Ox Delivery Rate 10/16 1600 97.9 83 11 140/70 95 Room Air 10/16 1400 94 Room Air / 1400 72 18 140/80 94 Room Air 10/16 1229 97.3 86 18 147/70 96 Room Air 10/16 1031 97.1 81 18 151/76 98 Room Air 10/16 0903 97 Room Air 10/16 0900 98.6 96 18 147/87 97 Room Air Intake & Output 10/16 1600 10/16 0800 10/16 0000 10/15 1600 10/15 0800 10/15 0000 Intake Total Output Total Balance Patient 145 lb Weight Physical Exam: Well-developed, thin elderly male in no acute distress. Vital signs: See above. HEENT: Normocephalic, atraumatic, EOMI, slightly dry mucous membranes. Neck: No JVD, no bruits. Lungs: Decreased breath sounds bilaterally otherwise clear. Heart: S1, S2 (irregularly, irregular) with grade 1/6 systolic murmur. PMI fifth ICS at [facility]. No gallop or rub appreciated. Abdomen: Soft, nontender, positive bowel sounds. Extremities: No edema. Labs/Julian Results: Laboratory Tests 10/16 10/16 1700 1104 Chemistry Troponin I Pending Urines Urine Color (YEL,AMB,STR) YEL Urine Clarity (CLEAR) HAZY H Urine pH (5.0 - 8.0) 6.0 Ur Specific [place] (1.001 - 1.035) 1.025 Urine Protein (NEG,<30 MG/DL) TRACE H Urine Ketones (NEG) NEG Urine Nitrite (NEG) POS H Urine Bilirubin (NEG) NEG Urine Urobilinogen (0.1 - 1.0 EU/dl) 1.0 Ur Leukocyte Esterase (NEG) MOD H Ur Microscopic SEDIMENT EXAMINED Urine RBC (0 - 5 /HPF) RARE Urine WBC (0 - 2 /HPF) 50-75 H Urine Mucus (FEW,NONE) RARE Urine Hemoglobin (NEG) NEG Urine Glucose (N MG/DL) NEG 10/16 0939 Chemistry Sodium (137 - 145 mmol/L) 138 Potassium (3.5 - 5.1 mmol/L) 4.2 Chloride (98 - 107 mmol/L) 102 Carbon Dioxide (22 - 30 mmol/L) 29 Anion Gap (5 - 16) 8 BUN (9 - 20 mg/dL) 30 H Creatinine (0.7 - 1.2 mg/dL) 1.5 H Estimated GFR (>60 ml/min) 44 L BUN/Creatinine Ratio (7 - 25 %) 20.0 Glucose (65 - 99 mg/dL) 90 Calcium (8.4 - 10.2 mg/dL) 9.1 Magnesium (1.6 - 2.3 mg/dL) Pending Total Bilirubin (0.2 - 1.3 mg/dL) 0.8 AST (17 - 59 U/L) 19 ALT (21 - 72 U/L) 23 Alkaline Phosphatase (< 127 U/L) 123 Creatine Kinase (55 - 170 U/L) 70 Troponin I (<0.11 ng/ml) < 0.01 Total Protein (6.3 - 8.2 g/dL) 7.0 Albumin (3.5 - 5.0 g/dL) 3.6 Globulin (1.9 - 4.2 gm/dL) 3.4 Albumin/Globulin Ratio (1.1 - 2.2 %) 1.1 Coagulation PT (9.4 - 12.5 SEC) 34.8 H INR (0.90 - 1.17) 3.35 H Hematology CBC w Diff NO MAN DIFF REQ WBC (4.8 - 10.8 /CUMM) 6.4 RBC (4.70 - 6.10 /CUMM) 3.99 L Hgb (14.0 - 18.0 G/DL) 12.3 L Hct (42 - 52 %) 36.8 L MCV (80.0 - 94.0 FL) 92.3 MCH (27.0 - 31.0 PG) 30.7 RDW (11.5 - 14.5 %) 14.1 Plt Count (130 - 400 /CUMM) 184 MPV (7.4 - 10.4 FL) 8.2 Gran % (42.2 - 75.2 %) 80.2 H Lymphocytes % (20.5 - 51.1 %) 8.2 L Monocytes % (1.7 - 9.3 %) 9.4 H Eosinophils % (0 - 5 %) 1.9 Basophils % (0.0 - 2.0 %) 0.3 Absolute Granulocytes (1.4 - 6.5 /CUMM) 5.1 Absolute Lymphocytes (1.2 - 3.4 /CUMM) 0.5 L Absolute Monocytes (0.10 - 0.60 /CUMM) 0.6 Absolute Eosinophils (0.0 - 0.7 /CUMM) 0.1 Absolute Basophils (0.0 - 0.2 /CUMM) 0 PUBS MCHC (33.0 - 37.0 G/DL) 33.3 Diagnostic Data EKG Results (10/16/2016) atrial fibrillation with a moderate ventricular response, frequent ventricular ectopy including couplets, and low frontal lead voltage. This tracing is similar to the patient's tracing performed earlier today, but both have significantly increased ventricular ectopy when compared to preadmission tracing from 09/17/2016. Other Results Echocardiogram (05/10/2016) Normal size left ventricle with mild concentric left ventricular hypertrophy, no obvious regional wall motion abnormalities, and normal systolic function with an estimated ejection fraction of greater than 55% , normal right ventricular size and function, moderate atrial dilatation, mild- to-moderate mitral regurgitation, mild aortic stenosis, trace aortic regurgitation, mild tricuspid regurgitation, right ventricular systolic pressure estimated at 35 mmHg, and trace to mild pulmonic regurgitation. Assessment/Plan Assessment/Plan Mr. Lopez is an elderly male with a history of dementia, former heavy tobacco use, COPD, HTN, CKD, anemia, HLD, carotid artery disease (s/p left CEA), previous TIA, CAD (s/p PTCA LAD and LCx; CABG 2 MACHADO to LAD/SVG to LCx), AF on warfarin, and frequent unwitnessed falls versus syncopal episodes who presented again after being found on the floor was home following an unwitnessed fall versus syncopal episode, during which he sustained contusions to his elbows. He denies any prodromal symptoms, symptoms after he "came to", fecal/urinary incontinence, etc. He has a generally poor appetite, diarrhea last week, and his ED laboratory work c/w a degree of intravascular depletion, left shift without elevated WBC, and a UA c/w infected urine. Recommendations: * Transfer to telemetry given previously documented bradycardia, follow-up troponins, follow-up ECGs, strict inputs/outputs with gentle hydration. * Orthostatic blood pressure checks. * Check CXR, if not already performed, given potential for aspiration in the setting. * Hold warfarin, follow-up INR, restart warfarin when INR in therapeutic range ( 2.0-3.0). * Check magnesium, free T4, TSH, etc. * Antimicrobial therapy as per hospitalist for presumed UTI. * DVT prophylaxis being addressed by anticoagulation for atrial fibrillation. Further recommendations will follow, Thank you. Consult Acknowledgment - Thank you for your consult request.
[2016-10-16 18:23] VITALS: BP 122/70
--- NOTE | 2016-10-16 21:40 | RADIOLOGY REPORT ---
EXAMINATION: XR CHEST CLINICAL INFORMATION: Cough. COMPARISON: 05/11/2016 TECHNIQUE: 2 views of the chest were obtained. FINDINGS: Median sternotomy wires appear intact. The lungs are hyperexpanded. No significant pleural effusion. Likely small amount of pleural fluid along the fissure seen on the lateral view only. Pleural thickening at the left base is unchanged. No dense consolidation. Mild interstitial prominence is likely chronic. No pneumothorax. The cardiomediastinal silhouette remains prominent. Degenerative changes of the spine. IMPRESSION: Prominent interstitial markings are likely chronic. No dense consolidation.
[2016-10-16 23:00] VITALS: BP 130/62; BP 130/70
--- NOTE | 2016-10-16 23:06 | Admission Certification ---
Admission Certification Certification Statement - As attending physician, I certify that at the time of - admission, based on clinical presentation, severity of - symptoms, need for further diagnostic testing and - therapeutic interventions, and risk of adverse outcomes - without in-hospital treatment, in my clinical assessment, - this patient requires an acute hospital stay for a minimum - of two nights or longer. I have also considered psychsocial - factors such as support system, advanced age, financial - issues, cognitive issues, and failed out-patient treatments, - past re-admission history, safety of patient, and lack of - compliance as applicable. Specific rationale supporting this admission is: The patient presents after being found at home on floor/collapse- ? syncope. Has abnormal EKG and pyuria. ? UTI, possible arrythmia. Needs telemetry observation, cardiology consult, PT/OT, ? rehab.
[2016-10-17 07:30] VITALS: BP 150/80
[2016-10-17 08:18] LABS: ABSOLUTE BASOPHIL COUNT 0 /CUMM (0.0-0.2); ABSOLUTE EOSINOPHIL COUNT 0.2 /CUMM (0.0-0.7); ABSOLUTE GRANULOCYTE CT 5.1 /CUMM (1.4-6.5); ABSOLUTE LYMPH COUNT 0.6 /CUMM (1.2-3.4); ABSOLUTE MONOCYTE COUNT 0.7 /CUMM (0.10-0.60); BASOPHIL % 0.3 % (0.0-2.0); EOSINOPHIL % 2.9 % (0-5); GRANULOCYTE % 77.3 % (42.2-75.2); HEMATOCRIT 38.4 % (42-52); MEAN CORPUSCULAR HGB 30.6 PG (27.0-31.0); MEAN CORPUSCULAR HGB CONC 33.1 G/DL (33.0-37.0); MEAN CORPUSCULAR VOLUME 92.4 FL (80.0-94.0); MEAN PLATELET VOLUME 8.9 FL (7.4-10.4); PLATELET COUNT 180 /CUMM (130-400); RBC DISTRIBUTION WIDTH 13.9 % (11.5-14.5); RED BLOOD CELL CT 4.16 /CUMM (4.70-6.10); WHITE BLOOD CELL COUNT 6.5 /CUMM (4.8-10.8)
--- NOTE | 2016-10-17 09:22 | NUR ---
Physical Therapy: Consult received and chart reviewed. Pt transfered to tele due to EKG changes. Please reconsult when pt is medically stable and appropriate. Thank you.
--- NOTE | 2016-10-17 09:52 | PN- Att Addend ---
Attending Addendum Attending Brief Note Mr. Lopez was seen, H&P reviewed. Briefly, he is an 86 yo male with h/o dementia, COPD, HTN, CKD, anemia, HL, carotid disease (left CEA in past/TIA), CAD (s/p PTCA and CABG), who presented in the [place] ED today after being found on floor (unwitnessed). Labs c/w UTI, however, pt denies any dysuria. Was also evaluated by Cards Vital Signs Date Time Temp Pulse Resp B/P Pulse O2 O2 Flow FiO2 Ox Delivery Rate 10/17 0913 88 150/80 / 0913 88 20 150/80 / 0730 98.0 88 20 150/80 95 Room Air 02/03 2300 98.0 80 20 130/70 94 Room Air 02/03 2117 86 122/70 02/03 1823 98.0 86 16 122/70 95 Room Air 02/03 1600 97.9 83 11 140/70 95 Room Air 02/03 1400 94 Room Air 02/03 1400 72 18 140/80 94 Room Air 02/03 1229 97.3 86 18 147/70 96 Room Air 02/03 1031 97.1 81 18 151/76 98 Room Air Intake & Output / 1600 02/04 0800 02/ 0000 Intake Total 50 100 Output Total 200 370 Balance -150 -270 Intake, IV 20 Intake, Oral 50 80 Output, Urine 200 370 P/E: GEN: NAD, able to provide some history HEENT: missing teeth, moist mucosa LUNGS: CTA HEART: s1s2, IRIR ABD: soft, NT A/P: -- Cards - f/u cards input -- ID - cont to treat possible UTI, f/u UCx -- hold coumadin as IRN > 3 -- check daily labs, replete as necessary -- DNR/DNI as per record -- will likely need PT eval prior to d/c
--- NOTE | 2016-10-17 10:28 | PN- Housestaff ---
See Addendum Subjective Follow-up For: Unwitnessed fall UTI Complaints: no complaints Tele-Events Since Last Visit: No overnight events. Subjective: Patient is seen and examined at the bed side. He was concerned about the bump on the right hip,He was saying that his PCP wanted evaluated It.he denies of any urinary symptoms including dysuria, pain, or foul-smelling. Review of Systems Constitutional: Denies: no symptoms. Comments: Patient was mainly concerned for the bump on right buttock. Denies for any active symptoms Objective Last 24 Hrs of Vital Signs/I&O Vital Signs Date Time Temp Pulse Resp B/P Pulse O2 O2 Flow FiO2 Ox Delivery Rate 10/17 0913 88 150/80 10/17 0913 88 20 150/80 / 0730 98.0 88 20 150/80 95 Room Air 02/ 2300 98.0 80 20 130/70 94 Room Air / 2117 86 122/70 02/ 1823 98.0 86 16 122/70 95 Room Air / 1600 97.9 83 11 140/70 95 Room Air 02/03 1400 94 Room Air 02/03 1400 72 18 140/80 94 Room Air 02/ 1229 97.3 86 18 147/70 96 Room Air Intake & Output 10/17 1600 /04 0800 / 0000 Intake Total 50 100 Output Total 200 370 Balance -150 -270 Intake, IV 20 Intake, Oral 50 80 Output, Urine 200 370 Physical Exam General Appearance: Alert, Oriented X3, Cooperative, No Acute Distress Skin: No Rashes, small for him to 6 centimeters of bump on the left. a small 4x 6 cms bump on the right buttock, hard , non tender HEENT: Atraumatic, PERRLA, EOMI, right eye, secreations, thick, non itchy Neck: Supple, No JVD Cardiovascular: Normal S1, Normal S2 Lungs: Clear to Auscultation, Normal Air Movement Abdomen: Soft, No Tenderness Neurological: Normal Speech Extremities: No Clubbing, No Cyanosis, No Edema Assessment/Plan Assessment: He is 86-year-old man with past medical history of coronary artery disease status post CABG in 2002, chronic A. fib on Coumadin, left carotid endarterectomy, Alzheimer's disease, TIA, hypertension, COPD, hypothyroidism and chronic renal insufficiency BIBA from home as patient aide found him on the floor this morning. Patient lives alone. He hasn't health aide who comes in his home in the morning from 7:30am-1pm and then 5pm-11pm. Patient cannot recall the event Vital signs -98.8, pulse 88, respiration 20, blood pressure 150/80, SPO2 95%. Plan- * PT/INR, BEP tomorrow * Urine culture is showing gram-negative rods. We'll follow the sensitivity * Patient was having allergy to atorvastatin as per record, we will stop it and will consider for any other antihyperlipidemic, according to the pharmacy, they started him on Crestor. We will again asK attending for further decision. * We'll continue the same antibiotic -ciprofloxacin 500 twice a day * CODE STATUS-DNR/DNI * Diet-heart healthy diet * DVT prophylaxis-ALPS Problem List: 1. Syncope 2. Fall 3. UTI (urinary tract infection) Pain Ratin Pain Location: none Pain Goal: Remain pain free Pain Plan: mild Tomorrow's Labs & Rationales: PT/INR, BEP DVT/Prophylaxis: mechanical Consulting Request: Consulting Specialty: Cardiology
[2016-10-17 16:20] VITALS: BP 110/60
--- NOTE | 2016-10-17 18:24 | PN- Cardiology ---
Subjective Subjective: * No complaints. * atrial fibrillation with frequent PVC's including couplets * creatinine 1.4 * INR greater than 3 Objective Vital Signs and I&Os Vital Signs Date Time Temp Pulse Resp B/P Pulse O2 O2 Flow FiO2 Ox Delivery Rate 10/17 1620 97.4 44 16 110/60 94 Room Air 10/17 0913 88 150/80 10/17 0913 88 20 150/80 10/17 0730 98.0 88 20 150/80 95 Room Air 10/16 2300 98.0 80 20 130/70 94 Room Air 10/16 2117 86 122/70 10/16 1823 98.0 86 16 122/70 95 Room Air Intake & Output 10/17 1600 10/17 0800 10/17 0000 10/16 1600 10/16 0800 10/16 0000 Intake Total 480 50 100 450 Output Total 200 370 Balance 480 -150 -270 450 Intake, IV 20 Intake, Oral 480 50 80 450 Output, Urine 200 370 Patient 145 lb Weight Physical Exam: General: WD/ WN male in NAD; alert and oriented x 3 Neck: no JVD Heart: irregularly irregular with murmur Lungs: crackles at bases bilaterally Extremties: no edema Assessment/Plan Assessment/Plan * This patient does demonstrate fequent PVC's including couplets with no evidence of heart block, bradycardia or prolonged ventricular dysrhythmias that would explain syncope. He is not a good candidate for chronic anticoagulation which should be stopped. Monitor on telemetry for another day. Continue telemetry? Yes
[2016-10-17 23:09] VITALS: BP 120/70
--- NOTE | 2016-10-18 08:09 | PN- Housestaff ---
See Addendum Subjective Follow-up For: UTI Unwitnessed Subjective: Patient seen and examined this morning. He was lying comfortably in bed in no acute distress, alert, but minimally conversant. Has been afebrile, the right is within normal limits. No complaints Review of Systems Constitutional: Denies: chills, fever. Cardiovascular: Denies: chest pain, palpitations. Respiratory: Denies: cough, short of breath, sputum production. Gastrointestinal: Denies: abdominal pain, constipation, diarrhea, nausea, vomiting. Genitourinary: Denies: dysuria, frequency. Objective Last 24 Hrs of Vital Signs/I&O Vital Signs Date Time Temp Pulse Resp B/P Pulse O2 O2 Flow FiO2 Ox Delivery Rate 10/18 09 71 11260 10/18 09 71 11210/18 0844 98.6 71 18 112/60 93 Trach Mask 10/17 2309 96.8 71 16 120/70 93 Room Air 10/17 2125 74 120/60 10/17 1620 97.4 44 16 110/60 94 Room Air Intake & Output 10/18 1600 10/18 0800 02 0000 Intake Total 360 Output Total 200 Balance 160 Intake, Oral 360 Output, Urine 200 Physical Exam General Appearance: Alert, Oriented X3, Cooperative, No Acute Distress Cardiovascular: Regular Rate, Normal S1, Normal S2, No Murmurs Lungs: Clear to Auscultation, Normal Air Movement Abdomen: Normal Bowel Sounds, Soft, No Tenderness Extremities: No Clubbing, No Cyanosis, No Edema Current Medications: Current Medications Sig/Brigida Start time Last Medication Dose Route Stop Time Status Admin Acetaminophen 650 MG Q6-PRN PRN 10/16 1630 AC PO Atorvastatin Calcium 10 MG 1700 10/17 1700 CAN PO Bisacodyl 10 MG DAILY 10/17 1005 AC 10/18 PO 0900 Ciprofloxacin 250 MG BID 10/16 1547 AC 10/18 PO 10/20 1546 0900 Diltiazem HCl 120 MG DAILY 10/17 1000 AC 10/18 PO 0900 Donepezil HCl 10 MG DAILY 10/17 1000 AC 10/18 PO 0900 Ferrous Sulfate 325 MG DAILY 10/17 1000 AC 10/18 PO 0900 Levothyroxine Sodium 0.15 MG DAILY AC 10/17 0700 AC 10/18 PO 0722 Metoprolol Tartrate 25 MG BID 10/16 2200 AC 10/18 PO 0900 Omeprazole 40 MG DAILY AC 10/17 0700 AC 10/18 PO 0722 Polyethylene Glycol 17 GM DAILY 10/17 1005 AC 10/18 PO 0900 Rosuvastatin Calcium 10 MG 1700 10/17 1700 AC 10/17 PO 1654 Tamsulosin HCl 0.4 MG DAILY 10/17 1000 AC 10/18 PO 0900 Trazodone HCl 50 MG QPM 10/16 2200 AC 10/17 PO 2124 Last 24 Hrs of Lab/Julian Results Last 24 Hrs of Labs/Mics: Laboratory Tests 10/18/16 0620: Anion Gap 3 L, Estimated GFR 44 L, BUN/Creatinine Ratio 15.3, PT 26.1 H, INR 2.51 H Assessment/Plan Assessment: He is 86-year-old man with past medical history of coronary artery disease status post CABG in 2002, chronic A. fib on Coumadin, left carotid endarterectomy, Alzheimer's disease, TIA, hypertension, COPD, hypothyroidism and chronic renal insufficiency BIBA from home as patient aide found him on the floor this morning. Patient lives alone. He hasn't health aide who comes in his home in the morning from 7:30am-1pm and then 5pm-11pm. Patient cannot recall the event Vital signs -98.8, pulse 88, respiration 20, blood pressure 150/80, SPO2 95%. Plan- * PT/INR, BEP tomorrow * Urine culture is showing gram-negative rods. We'll follow the sensitivity * Patient currently on ciprofloxacin 500 twice a day, afebrile, wbc stable * CODE STATUS-DNR/DNI * Diet-heart healthy diet * DVT prophylaxis-ALPS Problem List: 1. UTI Pain Ratin Pain Location: None Pain Goal: Remain pain free Pain Plan: Mild pain pathway Tomorrow's Labs & Rationales: BEP for lites monitoring Consulting Request: Consulting Specialty: Cardiology
[2016-10-18 08:22] LABS: PT 26.1 SEC (9.4-12.5)
[2016-10-18 08:44] VITALS: BP 112/60
--- NOTE | 2016-10-18 09:24 | NUR ---
PHYSICAL THERAPY- ATTEMPTED TO SEE PT, BUT PT LETHARGIC AND UNABLE TO STAY ALERT LONG ENOUGH TO FOLLOW COMMANDS. PER NSG, PT HAS BEEN LETHARGIC AND DIFFICULT TO AROUSE ALL MORNING WELL. WILL CHECK BACK TOMORROW AND FOLLOW APPROPRIATE. THANK YOU, SATISH WOLFT
--- NOTE | 2016-10-18 14:35 | PN- Cardiology ---
Subjective Subjective: * Patient is lethargic and mildly confused. No specific complaints. * Atrial fibrillation with controlled heart rate. Frequent unifocal PVC's with no runs of NSVT/VT and no bradycardia or heart block to explain syncope. * creatinine 1.5 * UA is consistent with a UTI Objective Vital Signs and I&Os Vital Signs Date Time Temp Pulse Resp B/P Pulse O2 O2 Flow FiO2 Ox Delivery Rate 10/18 899 71 112/60 10/18 0900 71 112/60 10/18 0844 98.6 71 18 112/60 93 Trach Mask 10/17 2309 96.8 71 16 120/70 93 Room Air 10/17 2125 74 120/60 10/17 1620 97.4 44 16 110/60 94 Room Air Intake & Output 10/18 1600 10/18 0000 10/17 1600 10/17 0800 10/17 0000 Intake Total 360 480 50 100 Output Total 200 200 370 Balance 160 480 -150 -270 Intake, IV 20 Intake, Oral 360 480 50 80 Output, Urine 200 200 370 Physical Exam: General: WD/ WN male in NAD; alert and oriented x 3 Neck: no JVD Heart: irregularly irregular with murmur Lungs: crackles at bases bilaterally Extremities: no edema Assessment/Plan Assessment/Plan * This patient does demonstrate fequent PVC's including couplets with no evidence of heart block, bradycardia or prolonged ventricular dysrhythmias that would explain syncope. He is not a good candidate for chronic anticoagulation which should be stopped. I suspect that he was dehydrated and weak related to a UTI. * This patient does not usually take trazadone which should be stopped. Continue telemetry? Yes
[2016-10-18 16:00] VITALS: BP 97/61
[2016-10-18 20:30] VITALS: BP 98/58
[2016-10-18 23:36] VITALS: BP 120/68
--- NOTE | 2016-10-19 07:12 | PN- Housestaff ---
See Addendum Subjective Follow-up For: Unwitnessed fall UTI Tele-Events Since Last Visit: Atrial fibrillation, heart rate 85-93 PVC and triplets Subjective: Patient was seen and examined this morning, no overnight events reported by the nurse. Patient responded appropriately to questions, he keeps his eye closed, multiple episodes of tremors or shivering were noticed but patient denied feeling cold or having any pain. Temperature is 98.7 Patient has baseline dementia. Review of Systems Constitutional: Reports: see HPI. Objective Last 24 Hrs of Vital Signs/I&O Vital Signs Date Time Temp Pulse Resp B/P Pulse O2 O2 Flow FiO2 Ox Delivery Rate 10/18 2336 98.2 92 20 120/68 93 Room Air 10/18 2228 95 120/68 10/18 2030 84 98/58 10/18 1600 97.9 89 17 97/61 93 Room Air 10/18 0900 71 112/60 10/18 0900 71 112/60 Intake & Output 10/19 1600 10/19 0800 02 0000 Intake Total 120 Output Total 300 Balance -300 120 Intake, Oral 120 Output, Urine 300 Physical Exam General Appearance: Cooperative, No Acute Distress Skin: No Rashes, No Breakdown, No Significant Lesion HEENT: Atraumatic, PERRLA, EOMI, Mucous Membr. moist/pink Neck: Supple Cardiovascular: irrigular irrigular Lungs: Clear to Auscultation, Normal Air Movement Abdomen: Normal Bowel Sounds, Soft, No Tenderness Neurological: Normal Speech Extremities: No Clubbing, No Cyanosis, No Edema, Normal Pulses Assessment/Plan Assessment: He is 86-year-old man with past medical history of coronary artery disease status post CABG in 2002, chronic A. fib on Coumadin, left carotid endarterectomy, Alzheimer's disease, TIA, hypertension, COPD, hypothyroidism and chronic renal insufficiency BIBA from home as patient aide found him on the floor this morning. Patient lives alone. He hasn't health aide who comes in his home in the morning from 7:30am-1pm and then 5pm-11pm. Patient cannot recall the event Vital signs -98.8, pulse 88, respiration 20, blood pressure 150/80, SPO2 95%. Plan- * Patient is not good candidate for chronic anticoagulation per Cardiology discontinue warfarin. * Urine culture positive for Escherichia coli sensitive to ciprofloxacin * Continue ciprofloxacin 250 twice a day Day#4 * Discontinue trazodone * Continue atorvastatin 10 mg daily * Continue Cardizem 120 mg daily by mouth * Continue metoprolol 25 twice a day * Continue Synthroid 0.15 milligrams daily * Continue Flomax 0.4 mg daily * Continue ferrous sulfate 325 mg daily * Continued on Donapzil 10 mg by mouth daily * CODE STATUS-DNR/DNI * Diet-heart healthy diet * DVT prophylaxis-ALPS * Consultation cardiology, PT Problem List: 1. Altered mental status 2. Benign hypertension 3. Hyperlipidemia 4. UTI (urinary tract infection) 5. Fall Pain Ratin Pain Location: N/A Pain Goal: Pain 4 or less Pain Plan: Mild pain pathway Tomorrow's Labs & Rationales: CBc, CMP, INR Consulting Request: Consulting Specialty: Cardiology
[2016-10-19 08:50] VITALS: BP 130/80
--- NOTE | 2016-10-19 09:10 | Discharge Summary ---
Visit Information Visit Dates Admission Date: 10/16/16 Discharge Date: 10/19/2016 Hospital Course Course Attending Physician: ANA TUCKER MD Primary Care Physician: SAMANTHA ANDRE,TERI Woodruff Consulting Request: Consulting Specialty: Cardiology Hospital Course: is an 86 yo man with PMHx. of coronary artery disease status post CABG in 2002, chronic A. fib on Coumadin, left carotid endarterectomy, Alzheimer's disease, TIA, hypertension, COPD, hypothyroidism BIBA from home as patient aide found him on the floor this morning. Patient does not recall the whole event. On admission there were EKG changes, ventricular trigeminy. Patient is not complaining of any cardiac symptoms. There is a possibility that patient might have a syncopal episode because of questionable cardiac arrhythmias. Vitals on presentation was stable. Examination: Well-developed, thin elderly male in no acute distress. Vital signs: See above. HEENT: Normocephalic, atraumatic, EOMI, slightly dry mucous membranes. Neck: No JVD, no bruits. Lungs: Decreased breath sounds bilaterally otherwise clear. Heart: S1, S2 (irregularly, irregular) with grade 1/6 systolic murmur. PMI fifth ICS at [facility]. No gallop or rub appreciated. Abdomen: Soft, nontender, positive bowel sounds. Extremities: No edema. Patient initially admitted to Gen. med floor but because of EKG changes he transferred to telemetry floor immediately. 1. Unwittnesed Fall: Positive EKG changes.Cardiology consult was obtained with who recommended to follow-up troponins, follow-up ECGs, strict inputs/ outputs with gentle hydration, troponin was negative on 3 sets. magnesium:2.2 , free T4: 1.95, TSH:0.294. Telemetry demonstrate fequent PVC's including couplets with no evidence of heart block, bradycardia or prolonged ventricular dysrhythmias that would explain syncope. Coumadin was discontinued based on rn behavioral health recommendation. 2. Urinary tract infection: he report urinary frequency. UA was hazy, positive for esterase and nitrite. Urine culture was sent which was positive for E.coli. Patient was initiated on Ciprofloxacin for 5 days. 3. Supratherapeutic INR: At admission INR: 3.35, coumadin was held and then the decision was made by the rn behavioral health to hold coumadin as the patient is not a candidate for chronic AC. 4. Physical deconditioning and weakness. History of recurrent falls in past. Patient was seen by PT, he is going to be discharge to [facility]. 5. Chronic renal insufficiency. Creatinine at baseline. Complications: Non Allergies: Coded Allergies: atorvastatin (UNKNOWN 03/08/16) cephalexin (RASH 03/08/16) ramipril (RASH 03/08/16) Disposition Summary Disposition Principal Diagnosis: -UTI -Unwitnessed fall -EKG changes -Supratherapeutic INR Additional Diagnosis: coronary artery disease status post CABG in 2002, chronic A. fib on Coumadin, left carotid endarterectomy, Alzheimer's disease, TIA, hypertension, COPD, hypothyroidism and chronic renal insufficiency Discharge Disposition: SNF Discharge Instructions General Discharge Information Code Status: Do Not Resucitate/Intubat Patient's Diet: Heart healthy diet Patient's Activity: As tolerated Follow-Up Instructions/Appts: -Follow-up with your primary care physician 1 week after discharge -Follow up with your rn behavioral health in 1 week after discharge -Take your medications as prescribed Medications at Discharge Discharge Medications: Stop taking the following medications: Warfarin Sodium (Coumadin) 2.5 MG TABLET ORAL DAILY Trazodone HCl (Trazodone HCl) 50 MG TABLET ORAL Every night Continue taking these medications: Ferrous Sulfate (Ferrous Sulfate) 324 MG (65 MG IRON) TABLET. 1 Tablet ORAL DAILY Comments: PER PT MED LIST Last Taken: 04/26/15 Time: 0945 Esomeprazole (Nexium) 40 MG CAPSULE.DR 1 Capsule ORAL DAILY Comments: PER PT MED LIST NOT GIVEN IN HOSPITAL Rosuvastatin Calcium (Crestor) 10 MG TABLET 1 Tablet ORAL DAILY Comments: PER PT MED LIST NOT GIVEN IN HOSPITAL, PRAVACHOL GIVEN 04/25 @1700 Tamsulosin HCl (Tamsulosin HCl) 0.4 MG CAP.ER.24H 1 Capsule ORAL DAILY Qty = 90 Comments: Last Taken: 10/19/16 Time: 10AM Donepezil HCl (Donepezil HCl) 10 MG TABLET 1 Tablet ORAL DAILY Qty = 90 Comments: Last Taken: 10/19/16 Time: 10 AM Polyethylene Glycol 3350 (Miralax) 119 GM POWDER 17 Gram ORAL DAILY as needed for CONSTIPATION Days = 30 Comments: Last Taken: 10/19/16 Time: 10AM Levothyroxine Sodium (Levothyroxine Sodium) 150 MCG TABLET 1 Tablet ORAL DAILY Qty = 30 Comments: Last Taken: 10/19/16 Time: 7AM Diltiazem HCl (Diltiazem 24HR ER) 120 MG CAP.ER.24H 1 Capsule ORAL DAILY Qty = 90 Comments: Last Taken: 10/19/16 Time: 10AM Metoprolol Tartrate (Metoprolol Tartrate) 25 MG TABLET 1 Tablet ORAL TWICE DAILY Qty = 1 Comments: Last Taken: 10/19/16 Time: 10AM Start taking the following new medications: Ciprofloxacin HCl (Ciprofloxacin HCl) 250 MG TABLET 1 Tablet ORAL TWICE DAILY Qty = 2 No Refills Copies To: ELANA MALONE M.D Attending MD Review Statement Documenting Attending: ELANA MALONE M.D Other Findings: I have reviewed the discharge summary.
[2016-10-19] MEDS ORDERED: METOPROLOL TART25 M1 PO (09:58)
--- NOTE | 2016-10-19 10:03 | Patient Discharge Instructions ---
Discharge Instructions General Discharge Information You were seen/treated for: -UTI -Unwitnessed fall -EKG changes -Supratherapeutic INR Special Instructions: -Follow-up with your primary care physician 1 week after discharge -Follow up with your science consultant in 1 week after discharge -Check your medications as prescribed Activity Activity Self Limited: Yes Acute Coronary Syndrome Inclusion Criteria At DC or during hospital stay patient has or had the following: ACS DIAGNOSIS No Discharge Core Measures Meds if any: Prescribed or Continued at Discharge Meds if any: NOT Prescribed or Continued at Discharge Congestive Heart Failure Inclusion Criteria At DC or during hospital stay patient has or had the following: CHF DIAGNOSIS No Discharge Core Measures Meds if any: Prescribed or Continued at Discharge Meds if any: NOT Prescribed or Continued at Discharge Cerebrovascular accident Inclusion Criteria At DC or during hospital stay patient has or had the following: CVA/TIA Diagnosis No Discharge Core Measures Meds if any: Prescribed or Continued at Discharge Meds if any: NOT Prescribed or Continued at Discharge Venous thromboembolism Inclusion Criteria VTE Diagnosis No VTE Type NONE VTE Confirmed by (Test) NONE Discharge Core Measures - Per Current guidelines, there needs to be overlap - treatment for the first 5 days of Warfarin therapy. - If discharged on Warfarin prior to 5 days of - overlap therapy, the patient will need to be - assessed for post discharge needs including - *Post discharge parental anticoagulation - *Warfarin and/or parental anticoagulation education - *Follow up date to check INR post discharge At least 5 days overlap therapy as Inpatient No Meds if any: Prescribed or Continued at Discharge Note: Overlap Therapy is Warfarin and Anticoagulant Meds if any: NOT Prescribed or Continued at Discharge
[2016-10-19] MEDS ORDERED: CIPROFLOXACIN250 M1 PO (10:08)
--- NOTE | 2016-10-19 10:51 | ECHOCARDIOGRAM REPORT ---
PAGE GARRIDO Age: 86 : 1930 Gender: M Exam Date: 10/18/2016 10:54 Exam Location: [address] Ht (in): 67 Wt (lb): 145 BSA: 1.77 BP: 120 / 70 Ordering Physician: KG BATES MD Referring Physician: KG BATES MD Technologist: Luda Barcenas [facility] Room Number: 174-01 Indications: PRESYNCOPE/SYNCOPE Rhythm: Atrial fibrillation Technical Quality: Fair FINDINGS Left Ventricle Normal size left ventricle. Mild concentric left ventricular hypertrophy. No obvious regional wall motion abnormalities. Normal left ventricular ejection fraction visually estimated at 65%. Right Ventricle Right ventricle at upper limits of normal. Right Atrium Moderate right atrial dilatation. Left Atrium Moderate left atrial dilatation. Mitral Valve Mild mitral annular calcification. Mitral valve thickened. Mild mitral regurgitation. Aortic Valve Diffuse thickening of the aortic valve cusps with reduced excursion. Mild aortic stenosis. No aortic regurgitation. Tricuspid Valve Structurally normal tricuspid valve. Mild tricuspid regurgitation. Right ventricular systolic pressure estimated at 38 mmHg. Pulmonic Valve Pulmonic valve not well visualized. No pulmonic regurgitation. Pericardium No pericardial effusion. Great Vessels Normal size aortic root. CONCLUSIONS Normal size left ventricle. Mild concentric left ventricular hypertrophy. No obvious regional wall motion abnormalities. Normal left ventricular ejection fraction visually estimated at 65%. Right ventricle at upper limits of normal. Moderate atrial dilatation. Mild mitral regurgitation. Mild aortic stenosis. Mild tricuspid regurgitation. Right ventricular systolic pressure estimated at 38 mmHg. Jermain Devries M.D. (Electronically Signed) Final Date: 19 October 2016 10:50 MEASUREMENTS (Male / Female) Normal Values 2D ECHO LV Diastolic Diameter PLAX 5.2 cm 4.2 - 5.9 / 3.9 - 5.3 cm LV Systolic Diameter PLAX 3.3 cm 2.1 - 4.0 cm LV Fractional Shortening PLAX 36.5 % 25 - 46 % LV Ejection Fraction 2D Teich 65.9 % IVS Diastolic Thickness 1.3 cm LVPW Diastolic Thickness 1.3 cm LV Relative Wall Thickness 0.5 RV Internal Dim ED PLAX 3.3 cm 1.9 - 3.8 cm LVOT Diameter 2.2 cm Aortic Root Diameter 2.8 cm LA Systolic Diameter LX 4.9 cm 3.0 - 4.0 / 2.7 - 3.8 cm LA Volume 63.0 cm 18 - 58 / 22 - 52 cm DOPPLER AV Peak Velocity 194.0 cm/s AV Peak Gradient 15.1 mmHg AV Mean Velocity 153.0 cm/s AV Mean Gradient 10.0 mmHg AV Velocity Time Integral 47.8 cm LVOT Peak Velocity 72.2 cm/s LVOT Peak Gradient 2.1 mmHg LVOT Mean Velocity 48.3 cm/s LVOT Mean Gradient 1.0 mmHg LVOT Velocity Time Integral 17.3 cm LVOT Stroke Volume 65.8 cm AV Area Cont Eq vti 1.4 cm AV Area Cont Eq pk 1.4 cm MV Peak Velocity 116.0 cm/s MV Peak Gradient 5.4 mmHg MV Mean Velocity 52.1 cm/s MV Mean Gradient 1.0 mmHg Mitral E Point Velocity 99.7 cm/s MV PHT Velocity 122.0 cm/s MV Deceleration Clinch 421.0 cm/s MV Pressure Half Time 86.9 ms MV Area PHT 2.5 cm MV Deceleration Time 158.0 ms TR Peak Velocity 285.0 cm/s TR Peak Gradient 32.5 mmHg Right Atrial Pressure 5.0 mmHg Pulmonary Artery Systolic Pressu 37.5 mmHg Right Ventricular Systolic Press 37.5 mmHg PV Peak Velocity 86.8 cm/s PV Peak Gradient 3.0 mmHg PV Mean Velocity 57.5 cm/s PV Mean Gradient 2.0 mmHg PV Velocity Time Integral 13.8 cm LV E' Lateral Velocity 9.8 cm/s Mitral E to LV E' Lateral Ratio 10.1 LV E' Septal Velocity 6.8 cm/s Mitral E to LV E' Septal Ratio 14.6
[2016-10-19 14:07] VITALS: BP 130/80
== END 2016-10-19 16:15 | DRG 690 ==
LOC: ENRESERVTM → ENRESERVDT → ERH 08:56 → 1NO 12:24 → 2NB 12:24 → ERHI 12:24 → ENPENDDIS 12:24 → 1NO 13:54 → 2NB 13:54 → 1NO 18:04
PROVIDERS: Internal Medicine; Physician Assistant Medical; Student in an Organized Health Care Education/Training Program; ADMIT Internal Medicine
DX: N39.0 Urinary tract infection, site not specified (principal); R00.1 Bradycardia, unspecified; I25.810 Atherosclerosis of coronary artery bypass graft(s) without angina pectoris; I11.9 Hypertensive heart disease without heart failure; I48.2 Chronic atrial fibrillation; I25.10 Atherosclerotic heart disease of native coronary artery without angina pectoris; Z95.1 Presence of aortocoronary bypass graft; Z79.01 Long term (current) use of anticoagulants; G30.9 Alzheimer's disease, unspecified; F02.80 Dementia in other diseases classified elsewhere, unspecified severity, without behavioral disturbance, psychotic disturbance, mood disturbance, and anxiety; J44.9 Chronic obstructive pulmonary disease, unspecified; E03.9 Hypothyroidism, unspecified; Z87.891 Personal history of nicotine dependence; B96.20 Unspecified Escherichia coli [E. coli] as the cause of diseases classified elsewhere
CPT/HCPCS: 1NSP; 36415; 73502-RT; 81001; 82436; 87040; 87086; 93005; 93010; 93306; 97110-GO; 97162-GP; 97530-GO